=== PATIENT | female | born 1975 | race Caucasian/White ===

== ENCOUNTER 2017-05-05 19:57 | Emergency (ER) | payer BC, OTHER ==
--- NOTE | 2017-05-05 21:19 | ED ---
- HPI Summary HPI Summary: Patient presents to the ED with a needlestick injury. Needle exposure after giving patient insulin, left index finger. Area is small, unable to visualize well. No bleeding. She was sent here from her department. Tetanus is up-to- date as of 5 years ago per patient. She is declining prophylactic treatment as she is low risk. Hep B, hep C, HIV will be obtained. She denies any other injuries. She denies any pain or other concerns at this time. This has never happened before. - History of Current Complaint Chief Complaint: EDExposureBodyFluid Stated Complaint: NEEDLE STICK Time Seen by Provider: 05/05/17 20:13 Needlestick: Solid Needle Blood on Needle: No Depth of Needlestick: Puncture Bleeding at Site: No - Source Information HIV: Unknown Hepatitis: Unknown - Risk Factors Needlestick Risk Factor: Low Risk: Solid Needle - Other Discussed Post-Exposure prophylaxis (PEP) for HIV: Declined Discussed PEP for Hepatitis-B: Declined Serologic Testing (HIV/HBV) Declined by Patient: Yes PMH/Surg Hx/FS Hx/Imm Hx Previously Healthy: Yes Endocrine/Hematology History: Denies: Hx Diabetes, Hx Thyroid Disease Cardiovascular History: Denies: Hx Hypertension Respiratory History: Denies: Hx Asthma, Hx Chronic Obstructive Pulmonary Disease (COPD) GI History: Denies: Hx Ulcer - Immunization History Hx Pertussis Vaccination: No Immunizations Up to Date: Yes Infectious Disease History: No Infectious Disease History: Denies: Hx Hepatitis, Hx Human Immunodeficiency Virus (HIV), Traveled Outside the [place] in Last 30 Days - Social History Occupation: Employed Full-time Lives: With Family Alcohol Use: Rare Hx Substance Use: No Substance Use Type: Reports: None Hx Tobacco Use: No Smoking Status (MU): Never Smoked Tobacco Review of Systems Constitutional: Negative Negative: Fever, Chills, Fatigue, Skin Diaphoresis Eyes: Negative Cardiovascular: Negative Respiratory: Negative Genitourinary: Negative Positive: no symptoms reported, see HPI Musculoskeletal: Negative Neurological: Negative Psychological: Normal All Other Systems Reviewed And Are Negative: Yes Physical Exam Triage Information Reviewed: Yes Vital Signs On Initial Exam: Initial Vitals Temp Pulse Resp BP Pulse Ox 98.6 F 84 16 114/69 100 05/05/17 20:00 05/05/17 20:00 05/05/17 20:00 05/05/17 20:00 05/05/17 20:00 Vital Signs Reviewed: Yes Appearance: Positive: Well-Appearing, Well-Nourished Skin: Positive: Warm, Skin Color Reflects Adequate Perfusion Head/Face: Positive: Normal Head/Face Inspection Eyes: Positive: EOMI, GEO, Conjunctiva Clear Neck: Positive: Supple, No Lymphadenopathy Respiratory/Lung Sounds: Positive: Clear to Auscultation, Breath Sounds Present Musculoskeletal: Positive: Normal, Strength/ROM Intact Neurological: Positive: Alert, Oriented to Person Place, Time, Speech Normal Psychiatric: Positive: Normal Diagnostics - Vital Signs Vital Signs Temp Pulse Resp BP Pulse Ox 05/05/17 20:00 98.6 F 84 16 114/69 100 - Laboratory Lab Statement: Any lab studies that have been ordered have been reviewed, and results considered in the medical decision making process. Needlestick Course/Dx - Course Course Of Treatment: Discussed with patient prophylactic treatment and hep B, hep C, HIV series. She agrees to blood work, but declines as she has low risk. Tetanus up-to-date as of 5 years ago. Will receive source patient information and will not treat at this time. If anything becomes positive we will give her a call and she will follow-up with Dr. Holliday. - Diagnoses Provider Diagnoses: Needlestick injury accident Discharge - Sign-Out/Discharge Documenting (check all that apply): Discharge - Discharge Plan Condition: Stable Disposition: HOME Patient Education Materials: Postexposure Prophylaxis (ED), Body Substance Exposure (ED) Referrals: No Primary Care Phys,NOPCP [Primary Care Provider] - Additional Instructions: Will call with any POSITIVE results. Will await source patient results. - Billing Disposition and Condition Condition: STABLE Disposition: HOME
[2017-05-05 21:37] VITALS: BP 102/68
== END 2017-05-05 21:36 | disposition home or self-care (01) ==
LOC: ED 19:57
DX: S61.231A Puncture wound without foreign body of left index finger without damage to nail, initial encounter (principal); X58.XXXA Exposure to other specified factors, initial encounter; Y99.0 Civilian activity done for income or pay; Z77.21 Contact with and (suspected) exposure to potentially hazardous body fluids
CPT/HCPCS: 36415; 86703; 86706; 86803; 87340; 99282

== ENCOUNTER 2018-11-25 15:59 | Emergency (ER) | payer OTHER ==
[2018-11-25 16:08] VITALS: BP 117/56
--- NOTE | 2018-11-25 16:25 | UC ---
Lower Extremity/Ankle HPI - HPI Summary HPI Summary: 3 weeks ago opened metal door and injured right 5th toe. has been painful since then. initially red and bruised, but that has resolved. Pain is still present and wants to make sure not fx'd. - History of Current Complaint Chief Complaint: UCLowerExtremity Stated Complaint: TOE PAIN Time Seen by Provider: 11/25/18 16:05 Hx Obtained From: Patient Hx Last Menstrual Period: 3 weeks ago Pain Intensity: 3 Pain Scale Used: 0-10 Numeric Aggravating Factor(s): Nothing Alleviating Factor(s): Nothing - Allergies/Home Medications Allergies/Adverse Reactions: Allergies Allergy/AdvReac Type Severity Reaction Status Date / Time No Known Allergies Allergy Verified 11/25/18 16:08 Home Medications: Home Medications NK [No Home Medications Reported] 11/25/18 [History Confirmed 11/25/18] PMH/Surg Hx/FS Hx/Imm Hx - Additional Past Medical History Additional PMH: no chronic illness Previously Healthy: Yes - Surgical History Surgical History: None - Family History Known Family History: Positive: Non-Contributory - Social History Alcohol Use: Rare Substance Use Type: None Smoking Status (MU): Never Smoked Tobacco Review of Systems All Other Systems Reviewed And Are Negative: Yes Constitutional: Negative: Fever, Chills, Fatigue Skin: Negative: Rash, Bruising, Other Musculoskeletal: Positive: Arthralgia - fifth toe, right Neurological: Negative: Weakness, Paresthesia Physical Exam Triage Information Reviewed: Yes Appearance: Well-Appearing Vital Signs: Initial Vital Signs Temp 98.3 F 11/25/18 16:03 Pulse 92 11/25/18 16:03 Resp 16 11/25/18 16:03 BP 117/56 11/25/18 16:03 Pulse Ox 98 11/25/18 16:03 Vital Signs Reviewed: Yes Respiratory: Positive: No respiratory distress Cardiovascular: Positive: Pulses Normal - pedal normal R foot Musculoskeletal: Positive: ROM Limited @ - 5th toe due to pain., Edema @ - mild at 5th digit Neurological: Positive: Alert Skin: Positive: Other - nail is preserved in 5th toe, R. Negative: Rashes Lower Extremity Course/Dx - Course Course Of Treatment: R 5th toe pain after injuring it 3 wks. ago. XRAY neg for fx. Able to navi tape it for support. likely contusion. no neuro deficits. - Differential Dx/Diagnosis Differential Diagnosis/HQI/PQRI: Contusion, Fracture (Closed), Sprain, Strain Provider Diagnosis: Toe pain Discharge ED - Sign-Out/Discharge Documenting (check all that apply): Patient Departure All imaging exams completed and their final reports reviewed: No Studies - Discharge Plan Condition: Good Disposition: HOME Patient Education Materials: Metatarsalgia (DC) Referrals: No Primary Care Phys,NOPCP [Primary Care Provider] - Additional Instructions: Your toe is not fractured but we are navi taping this to protect it from re- injury. - Billing Disposition and Condition Condition: GOOD Disposition: Home
== END 2018-11-25 16:45 | disposition home or self-care (01) ==
LOC: UCEAST 15:59
DX: M79.674 Pain in right toe(s) (principal)
CPT/HCPCS: 99211; G0463

== ENCOUNTER 2019-01-21 19:41 | Emergency (ER) | payer OTHER ==
--- OUTSIDE RECORDS SUMMARY | 2019-01-21 19:48 | XMS REPORT | Continuity of Care Document ---
:1975 External Reference #:[id number] Author Name Alicia Israel DO Address [address] [place] [id number] Problems Active Problems Provider Date Migraine Onset: 2015 Episodic cluster headache Onset: 2015 Miscarriage without complication Onset: 11/20/2014 Social History Type Date Description Comments Sex Unknown Tobacco Use Start: Unknown Patient has never smoked Smoking Status Reviewed: 11/29/18 Patient has never smoked Allergies, Adverse Reactions, Alerts Description No Information Available Medications Description No Information Available Medications Administered in Office Medication SIG Qnty Indications Ordering Provider Date TB Intradermal Test Unknown 09/09/2011 Injection TB Intradermal Test Unknown 09/02/2011 Injection DTaP Vaccine Younger Than 7 Unknown 09/06/1978 (Infanrix) Injection DTaP Vaccine Younger Than 7 Unknown 04/06/1977 (Infanrix) Injection DTaP Vaccine Younger Than 7 Unknown 1976 (Infanrix) Injection DTaP Vaccine Younger Than 7 Unknown 1976 (Infanrix) Injection Immunizations CPT Code Status Date Vaccine Lot # [id number] Given 10/30/2013 Influenza Virus Vaccine, Quadrivalent, Split Virus, Im Use 0.5ML [id number] Given 10/30/2013 Flu < 65 years 39359 Given 10/30/2013 Influenza Virus Vaccine, Quadrivalent, Split, Preservative Free 44778 Given 10/30/2013 Flumist 74047 Given 10/30/2013 Flu High Dose 05713 Given 07/26/2013 Hepatitis B >=20 yrs, Energix or Recombivax 45912 Given 10/11/2011 Hepatitis B >=20 yrs, Energix or Recombivax 52257 Given 09/15/2011 Tdap - Boostrix/Adacel 49694 Given 09/12/2011 Hepatitis B >=20 yrs, Energix or Recombivax 50746 Given 09/08/2010 MMR Vaccine 72749 Given 08/16/1994 MMR Vaccine 96015 Given 09/06/1982 Polio - Ipol 16104 Given 09/06/1978 Polio - Ipol 65718 Given 12/07/1977 Polio - Ipol 25286 Given 12/05/1977 MMR Vaccine 72582 Given 1976 Polio - Ipol 90444 Given 1976 Polio - Ipol Vital Signs Date Vital Result Comment 11/29/2018 2:04pm BP Systolic 118 mmHg BP Diastolic 70 mmHg Height 59.25 inches 4'11.25" Weight 142.00 lb Heart Rate 82 /min Body Temperature 97.7 F O2 % BldC Oximetry 99 % BMI (Body Mass Index) 28.4 kg/m2 08/15/2017 1:53pm BP Systolic 102 mmHg Height 58.50 inches 4'10.50" Weight 130.00 lb Heart Rate 90 /min Body Temperature 97.6 F O2 % BldC Oximetry 98 % BMI (Body Mass Index) 26.71 kg/m2 Results Description No Information Available Procedures Date Code Description Status 11/29/2018 20252 Brief Emotional/Behav Assessment W/ Scoring Doc Per Completed Standard Inst Medical Devices Description No Information Available Encounters Type Date Location Provider Dx Diagnosis Office Visit 11/29/2018 [facility] Alicia Israel DO Z00.00 Encntr for general 2:00p adult medical exam w/o abnormal findings Z12.31 Encntr screen mammogram for malignant neoplasm of breast R51 Headache Z68.28 Body mass index (BMI) 28.0-28.9, adult Assessments Date Code Description Provider 11/29/2018 Z00.00 Encounter for general adult medical Alicia Israel DO examination without abnormal findings 11/29/2018 Z12.31 Encounter for screening mammogram for Alicia Israel DO malignant neoplasm of breast 11/29/2018 R51 Headache Alicia Israel, 11/29/2018 Z68.28 Body mass index (BMI) 28.0-28.9, adult Alicia Israel DO Plan of Treatment Future Appointment(s):01/01/2019 4:00 pm - Alicia Israel DO at [facility] Main - Alicia Israel, DOZ00.00 Encounter for general adult medical examination without abnormal findingsComments:Doing ok overall Depression screen positive - states she was just being honest - supportive listening and let her know that if she ever wishes to discuss more, I am here We are making a follow up visitfor her headaches and word finding difficulty and will check in again at that pointDeclines flubelieve she is up to date on PAP - records requested Declines HIV testing Had labs recently enough that noneed to [id number] Encounter for screening mammogram for malignant neoplasm of breastNew Xrays:Mammography, Bilateral, Ordered: 11/29/18Comments:Still from one side but will take order and get it once done Discussed can pump to empty prior but since likely stopping soon, will just waitR51 HeadacheComments:Abnormal headaches at end of and now word finding difficultiesLaurel was admitted before babywas born 3+years ago and no one really could figure it out and she never followed upHas not been having the headaches but occ worries that it will happenShe is going to keep a journal of symptoms and we will follow up in 6-8weeks to review and possibly order [id number] Body mass index (BMI) 28.0-28.9, adult Functional Status Description No Information Available Mental Status Description No Information Available Referrals Description No Information Available
[2019-01-21 19:57] VITALS: BP 107/68
--- NOTE | 2019-01-21 20:36 | UC ---
Upper Extremity HPI - HPI Summary HPI Summary: R shoulder pain after falling off ladder in her home x5 wks. ago. Pain continues and ROM is improving but still decreased. denies tingling/numbness - History of Current Complaint Chief Complaint: UCUpperExtremity Stated Complaint: RT SHOULDER Time Seen by Provider: 01/21/19 19:55 Hx Obtained From: Patient Hx Last Menstrual Period: 12/22/18 Pain Intensity: 2 Pain Scale Used: 0-10 Numeric Aggravating Factor(s): Lifting, Internal/External Rotation Alleviating Factor(s): Nothing - Allergies/Home Medications Allergies/Adverse Reactions: Allergies Allergy/AdvReac Type Severity Reaction Status Date / Time No Known Allergies Allergy Verified 01/21/19 19:57 PMH/Surg Hx/FS Hx/Imm Hx - Additional Past Medical History Additional PMH: no chronic illness Previously Healthy: Yes - Surgical History Surgical History: None - Family History Known Family History: Positive: Non-Contributory - Social History Alcohol Use: Rare Substance Use Type: None Smoking Status (MU): Never Smoked Tobacco Review of Systems All Other Systems Reviewed And Are Negative: Yes Constitutional: Negative: Fever, Chills, Fatigue Skin: Negative: Rash, Bruising Respiratory: Positive: Negative Cardiovascular: Positive: Negative Motor: Positive: Decreased ROM - R. Negative: Weakness Neurovascular: Negative: Decreased Sensation Musculoskeletal: Positive: Arthralgia - R shoulder, Decreased ROM - R shoulder. Negative: Edema, Myalgia Neurological: Negative: Weakness, Paresthesia Physical Exam Triage Information Reviewed: Yes Appearance: Well-Appearing Vital Signs: Initial Vital Signs Temp 101.2 F 01/21/19 19:48 Pulse 98 01/21/19 19:48 Resp 14 01/21/19 19:48 BP 107/68 01/21/19 19:48 Pulse Ox 100 01/21/19 19:48 Vital Signs Reviewed: Yes Neck: Positive: Supple, Nontender, No Lymphadenopathy Respiratory: Positive: No respiratory distress Musculoskeletal: Positive: Strength Intact - R, No Edema, ROM Limited @ - R, Other: - +LIFT OFF R SIDE Neurological: Positive: Alert Skin: Negative: Rashes, Other - no bruising. Diagnostics - Radiology No standard instances Radiology Interpretation Completed By: ED Physician Summary of Radiographic Findings: no obvious fx of r shoulder or clavicle. Upper Extremity Course/Dx - Course Course Of Treatment: R SHOULDER pain x 5 wks w/ no improvement after falling off ladder. Has had limited ROM but that is slowly improving. Unable to put on her coat normally. XRAY: no obvious fx. Suspect partial SITS tear. she declined pain meds. FEVER: incidental and recently came back from trip to [place] which are not concerning countries. She should f/u w pcp especially if she develops new symptoms. - Differential Dx/Diagnosis Differential Diagnosis/HQI/PQRI: Bursitis, Contusion, Fracture (Closed), Strain , Sprain Provider Diagnosis: Right shoulder pain Discharge ED - Sign-Out/Discharge Documenting (check all that apply): Patient Departure All imaging exams completed and their final reports reviewed: No - Discharge Plan Condition: Good Disposition: HOME Patient Education Materials: Shoulder Pain (ED) Referrals: Radha Kilgore PA [Physician Livestock Broker] - Additional Instructions: Please call the Orthopedic tomorrow to make appt. The final read will be done tomorrow morning by the radiologist. - Billing Disposition and Condition Condition: GOOD Disposition: Home - Attestation Statements Provider Attestation: Per institutional requirements, I have reviewed the chart, however, I was not consulted specifically or made aware of this patient by the midlevel provider. I did not personally evaluate, interact with , or disposition this patient.
--- NOTE | 2019-01-22 12:51 | UC ---
- Progress Note Progress Note: RADIOLOGY REPORT REVIEWED. NO EVIDENCE FOR FRACTURE. NO CHANGE IN MGMT. Course/Dx - Diagnoses Provider Diagnoses: Right shoulder pain Discharge ED - Sign-Out/Discharge Documenting (check all that apply): Post-Discharge Follow Up All imaging exams completed and their final reports reviewed: Yes - Discharge Plan Condition: Good Disposition: HOME Patient Education Materials: Shoulder Pain (ED) Referrals: Radha Kilgore PA [Physician Heating And Air Conditioning Mechanic] - Additional Instructions: Please call the Orthopedic tomorrow to make appt. The final read will be done tomorrow morning by the radiologist. - Billing Disposition and Condition Condition: GOOD Disposition: Home
== END 2019-01-21 20:50 | disposition home or self-care (01) ==
LOC: UCEAST 19:41
DX: M25.511 Pain in right shoulder (principal)
CPT/HCPCS: 99211; G0463